=== PATIENT | female | born 1970 | race Caucasian/White ===

== ENCOUNTER 2017-09-30 18:16 | Emergency (ER) | payer OTHER, BC ==
[2017-09-30 18:23] VITALS: BP 166/108; PULSE 104; RESP 18; TEMP 98.8; O2SAT 99
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
== END 2017-09-30 20:44 | disposition home or self-care (01) ==
LOC: H.ER 18:16
DX: M54.2 Cervicalgia (principal); V43.52XA Car driver injured in collision with other type car in traffic accident, initial encounter; Y92.410 Unspecified street and highway as the place of occurrence of the external cause
CPT/HCPCS: 72125; 81025; 96372; 99284; J1885